=== PATIENT | male | born 1995 | race Caucasian/White ===

== ENCOUNTER 2021-06-12 21:14 | Emergency (ER) | payer OTHER ==
[2021-06-12 21:21] VITALS: BP 151/86
--- NOTE | 2021-06-12 21:25 | ED Physician Documentation ---
PD HPI URI - Stated complaint Stated Complaint: EAR PX,SORE THROAT - Chief complaint Chief Complaint: Heent - History obtained from History obtained from: Patient - Additional information Additional information: Left ear pain and sore throat since early this morning. No associated fevers, myalgias etc. No rhinorrhea or cough. No shortness of breath. Review of Systems Constitutional: denies: Fever, Chills Ears: reports: Loss of hearing. denies: Ear pain Nose: denies: Rhinorrhea / runny nose Throat: reports: Sore throat PD PAST MEDICAL HISTORY - Past Medical History Past Medical History: No - Past Surgical History Past Surgical History: No - Present Medications Home Medications: Ambulatory Orders Medication Instructions Recorded Confirmed No Known Home Medications 06/12/21 06/12/21 - Allergies Allergies/Adverse Reactions: Allergies Allergy/AdvReac Type Severity Reaction Status Date / Time No Known Drug Allergies Allergy Verified 06/12/21 21:21 - Social History Does the pt smoke?: No Smoking Status: Never smoker Does the pt drink ETOH?: Yes ETOH Use: Liquor Does the pt have substance abuse?: No - Immunizations Immunizations are current?: Yes - POLST Patient has POLST: No PD ED PE NORMAL - Vitals Vital signs reviewed: Yes - General General: Alert and oriented X 3, No acute distress - HEENT HEENT: Other (, Oropharynx is normal.) - Neck Neck: Supple, no meningeal sign, No bony TTP - Respiratory Respiratory: No respiratory distress - Derm Derm: No rash - Neuro Neuro: Alert and oriented X 3, Normal speech - Psych Psych: Normal mood, Normal affect Results - Vitals Vitals: Vital Signs - 24 hr 06/12/21 21:15 Temperature 36.2 C L Heart Rate 81 Respiratory 16 Rate Blood Pressure 151/86 H O2 Saturation 100 Oxygen O2 Source Room air PD MEDICAL DECISION MAKING - ED course ED course: 26-year-old gentleman with mild viral URI. Left ear pain but TM is normal. Close watchful waiting is advised. A Covid test is collected. Departure - Departure Disposition: Home, Self Care Clinical Impression: Viral URI Condition: Good Record reviewed to determine appropriate education?: Yes Instructions: ED URI Viral Comments: As discussed, it seems that you have a virus. There is no evidence of ear infection in your throat stroke certainly does not look like it is strep throat. Ibuprofen as needed for pain, drink plenty of fluids. Return for new or worsening symptoms. You have a Covid test pending. You need to self quarantine until the result is done and negative. Do not leave your house. Do not get near anybody. The results should be done in 48 to 72 hours. We will call with a positive result, the fastest way to get a negative result for confirmation though is to go to the hospital website at [email or web address], click on the my [facility] tab and sign up for the patient portal. If any friends or family get sick and would like to have a Covid test done, but do not have signs or symptoms that would necessitate being hospitalized, there are multiple local options for Covid testing. [facility] keeps an updated list of testing and vaccination options at: [email or web address]. Forms: Activity restrictions
== END 2021-06-12 21:31 | disposition home or self-care (01) ==
LOC: ED 21:14
DX: J06.9 Acute upper respiratory infection, unspecified (principal); B97.89 Other viral agents as the cause of diseases classified elsewhere; H92.02 Otalgia, left ear; Z20.822 Contact with and (suspected) exposure to COVID-19
CPT/HCPCS: 99282; 99283

== ENCOUNTER 2022-02-21 17:28 | Emergency (ER) | payer OTHER ==
[2022-02-21 17:38] VITALS: BP 144/92
--- NOTE | 2022-02-21 17:56 | ED Physician Documentation ---
History of Present Illness - Stated complaint Stated Complaint: BURN - Chief complaint Chief Complaint: Burn - History obtained from History obtained from: Patient - History of Present Illness Timing: Today Pain level max: 0 Pain level now: 0 - Additonal information Additional information: R hand burn on oven coil. No pain. Mild redness. He states he called the nurse advice line and they told him to come in for evaluation. Patient is right- handed. Nothing makes it better or worse Review of Systems Constitutional: denies: Fever, Chills GI: denies: Vomiting, Diarrhea Neurologic: denies: Headache PD PAST MEDICAL HISTORY - Past Medical History Past Medical History: No - Past Surgical History Past Surgical History: No - Present Medications Home Medications: Ambulatory Orders Medication Instructions Recorded Confirmed No Known Home Medications 06/12/21 02/21/22 - Allergies Allergies/Adverse Reactions: Allergies Allergy/AdvReac Type Severity Reaction Status Date / Time No Known Drug Allergies Allergy Verified 02/21/22 17:38 - Social History Does the pt smoke?: No Smoking Status: Never smoker Does the pt drink ETOH?: Yes Does the pt have substance abuse?: No - Immunizations Immunizations are current?: Yes - POLST Patient has POLST: No PD ED PE NORMAL - Vitals Vital signs reviewed: Yes - General General: Alert and oriented X 3, No acute distress - HEENT HEENT: Moist mucous membranes - Neck Neck: Supple, no meningeal sign - Respiratory Respiratory: No respiratory distress - Derm Derm: Warm and dry - Extremities Extremities: Other (dorsum R hand - minimal erythema to area over the MCP joint index and middle fingers. not circumferential. ) - Neuro Neuro: Alert and oriented X 3 - Psych Psych: Normal mood, Normal affect Results - Vitals Vitals: Vital Signs - 24 hr 02/21/22 17:33 Temperature 36.2 C L Heart Rate 75 Respiratory 16 Rate Blood Pressure 144/92 H O2 Saturation 99 Oxygen O2 Source Room air PD MEDICAL DECISION MAKING - ED course Complexity details: considered differential, d/w patient ED course: Patient with a superficial burn to the right hand. We will continue supportive care and have him follow-up with his doctor for wound check. Neurovascular intact. Patient counseled regarding signs and symptoms for which I believe and urgent re-evaluation would be necessary. Patient with good understanding of and agreement to plan and is comfortable going home at this time This document was made in part using voice recognition software. While efforts are made to proofread this document, sound alike and grammatical errors may occur. Departure - Departure Disposition: 01 Home, Self Care Clinical Impression: Superficial burn of hand Qualifiers: Encounter type: initial encounter Burn of hand location: dorsum Laterality: right Qualified Code(s): T23.161A - Burn of first degree of back of right hand, initial encounter Condition: Good Instructions: ED Burn D 1st Follow-Up: your,doctor in 1 week [Other] Comments: Please follow-up with your doctor in 1 week for wound check. Please return if you notice redness, swelling or drainage from the wound. You can use Motrin or Tylenol for pain. Discharge Date/Time: 02/21/22 18:08
== END 2022-02-21 18:08 | disposition home or self-care (01) ==
LOC: ED 17:28
DX: T23.161A Burn of first degree of back of right hand, initial encounter (principal); X15.8XXA Contact with other hot household appliances, initial encounter
CPT/HCPCS: 99281; 99282